=== PATIENT | female | born 1985 | race Caucasian/White ===

== ENCOUNTER → 2018-10-13 | Outpatient (CLI) | payer OTHER ==
[~2018-10-13] MED LIST: ALBU90OI61 INH; BUPR100ER; CEPH500 PO; CHANTIX; DEPLIN-ALGAL O1 EAC1 PO; DESV50 PO; DOCU100 PO; DULERA 100 MCG/13 GM INH; Daily Multiple1 EACH PO; ESCI20 PO; HYDACE5325 PO; IBUP600 PO; LAMICTAL ODT200 MG PO; LAMICTAL XR250 MG PO; LAMO25; MODA200 PO; MULVITA; MULVITMINE PO; N-ACETYL-L-CYS600 MG PO; OMEG1CAP30; OXYACE7.5T PO; RXOXYACE PO; SEASONIQUE; SULTRIDS PO; VITAMIN D-32000 UNIT PO; ZOLP5 PO
== END | disposition home or self-care (01) ==
LOC: LAB SHORT 13:59 → LAB EV 13:59
DX: L03.011 Cellulitis of right finger (principal)
CPT/HCPCS: 87070; 87077; 87186; 87205

== ENCOUNTER → 2021-07-18 | Outpatient (CLI) | payer OTHER ==
[2021-07-18 16:05] LABS: Alanine Aminotransfer (ALT/SGP 31 U/L (12-78); Albumin, Blood 3.4 g/dL (3.4-5.0); Albumin/Globulin Ratio 0.9 (0.8-1.8); Alk Phos 66 U/L (40-126); Anion Gap 9 mmol/L (6-16); Aspartate Aminotrans (AST/SGOT 19 U/L (12-37); Bilirubin, Total 0.2 mg/dL (0.1-1.0); Blood Urea Nitrogen 12 mg/dL (8-24); Bun/Creatinine Ratio 13.2 (12.0-20.0); CO2, Blood 27 mmol/L (21-32); Calcium, Blood 8.9 mg/dL (8.5-10.1); Chloride, Blood 103 mmol/L (98-108); Creatinine, Blood 0.91 mg/dL (0.40-1.00); Globulin, Blood 3.8 g/dL (2.2-4.0); Glomerular Filtration Rate >60 (60-); Glucose, Blood 109 mg/dL (70-99); Potassium, Blood 3.8 mmol/L (3.5-5.5); Sodium, Blood 139 mmol/L (136-145); Total Protein, Blood 7.2 g/dL (6.4-8.2)
[2021-07-18 16:06] LABS: Bilirubin, Indirect Unable to Calculate mg/dL (0.1-0.7)
[2021-07-19 08:13] LABS: HIV AB/P24 AG SCREEN Non Reactive (Non Reactive)
== END ==
LOC: LAB SHORT 15:33
PROVIDERS: Physician Assistant
DX: Z02.9 Encounter for administrative examinations, unspecified (principal)
CPT/HCPCS: 80053; 82248; 86592; 87389